=== PATIENT | male | born 1995 | race Caucasian/White ===

== ENCOUNTER 2017-10-02 19:49 | Emergency (ER) | payer OTHER ==
[2017-10-02] MEDS ORDERED: KETOROLAC 30 MG/1 ML SDV IVP ONE (20:48)
[2017-10-02] MEDS ORDERED: DEXAMETHASONE 10 MG/ML VIAL IVP ONE (20:49)
[2017-10-02] MEDS ORDERED: NS 1,000 ML IV ONE (20:49)
--- NOTE | 2017-10-02 20:51 | EDPHY ---
H & P Time Seen by Provider: 10/02/17 20:36 HPI/ROS: CHIEF COMPLAINT: Sore throat, dysphagia HISTORY OF PRESENT ILLNESS: 22-year-old male presents to the emergency department by private vehicle with sore throat dysphagia over last few days. Patient has a history of frequent tonsillitis. He was last treated in May of 2017. He states that his symptoms began yesterday and been gradually getting worse. He is now having difficulty swallowing water. No known fevers or chills. No other URI symptoms. Denies a cough. He denies chest pain or difficulty breathing. No vomiting. He had mono 3 years ago. No known ill contacts. He has been told that he has should have his tonsils removed. REVIEW OF SYSTEMS: Constitutional: No fever, no chills. Eyes: No double or blurry vision. ENT: As above Respiratory: No cough, no shortness of breath. Cardiac: No chest pain. Gastrointestinal: No abdominal pain, vomiting or diarrhea. Genitourinary: No dysuria. Musculoskeletal: No neck or back pain. Skin: No rashes. Neurological: No headache. Past Medical/Surgical History: Frequent tonsillitis Social History: [employer] student from [place] Smoking Status: Never smoked Physical Exam: General Appearance: Alert, no distress. Afebrile. Muffled voice. Eyes: Pupils equal and round. Extraocular motions are all intact. ENT: Mouth: Mucous membranes moist. Large 3+ tonsils. No exudate. Muffled voice. No trismus. Respiratory: No wheezing, rhonchi, or rales, lungs are clear to auscultation. Cardiovascular: Regular rate and rhythm. Gastrointestinal: Abdomen is soft and nontender, no masses, no rebound or guarding, bowel sounds normal. Neurological: Alert and oriented x 3, cranial nerves II through XII grossly intact Skin: Warm and dry, no rashes. Musculoskeletal: Nontender to palpate along the cervical, thoracic or lumbar spine. Neck is supple. Extremities: Full range of motion and no peripheral edema. Psychiatric: Patient is oriented X 3, there is no agitation. Constitutional: Initial Vital Signs Temperature (C) 36.7 C 10/02/17 19:57 Heart Rate 109 H 10/02/17 19:57 Respiratory Rate 18 10/02/17 19:57 Blood Pressure 126/89 H 10/02/17 19:57 O2 Sat (%) 96 10/02/17 19:57 O2 Delivery Mode Room Air Allergies/Adverse Reactions: No Known Allergies Allergy (Unverified 10/02/17 19:56) Home Medications: Medication Instructions Recorded Amoxicillin/Clavulanate Pot 875 mg PO BID #20 tab 10/02/17 [Augmentin 875 mg tab] Tylenol 10/02/17 Medical Decision Making ED Course/Re-evaluation: 22-year-old male presents to the emergency department with sore throat, evidence of tonsillitis and muffled voice. He was treated with 30 mg of IV Toradol, 10 mg of IV Decadron and IV normal saline. He was feeling much better. He will be treated with Augmentin for his tonsillitis. He was given ENT referral. He has been told in the past to pursue possible tonsillectomy. I did discuss this with him. Patient is comfortable being discharged home. He is tolerating p.o. Fluids. He was instructed to return if he developed difficulty swallowing, fever, or if he felt worse in any way. Patient verbalized understanding and agreed. No evidence of peritonsillar abscess on exam. Differential Diagnosis: Including but not limited to tonsillitis, peritonsillar abscess, viral pharyngitis, strep pharyngitis, mononucleosis - Data Points Medications Given: Discontinued Medications Amoxicillin/Clavulanate Potassium (Augmentin 875mg) 875 mg PO EDNOW ONE PRN Reason: Protocol Stop: 10/02/17 22:20 Last Admin: 10/02/17 22:34 Dose: 875 mg Dexamethasone (Decadron Injection) 10 mg IVP EDNOW ONE Stop: 10/02/17 20:50 Last Admin: 10/02/17 20:55 Dose: 10 mg Sodium Chloride (Ns) 1,000 mls @ 0 mls/hr IV ONCE ONE PRN Reason: Wide Open Stop: 10/02/17 20:50 Last Admin: 10/02/17 20:53 Dose: 1,000 mls Ketorolac Tromethamine (Toradol) 30 mg IVP EDNOW ONE Stop: 10/02/17 20:49 Last Admin: 10/02/17 20:54 Dose: 30 mg Departure - Departure Disposition: Home, Routine, Self-Care Clinical Impression: Tonsillitis Condition: Good Instructions: Tonsillitis (ED) Additional Instructions: Augmentin 875 mg twice daily for 10 days. Follow up with ENT as discussed. Return to the emergency department if you developed difficulty breathing, difficulty swallowing, or if you feel worse in any way. Referrals: Dilan Lane MD [Medical Doctor] - 2-3 days without fail (ENT on-call) Prescriptions: Amoxicillin/Clavulanate Pot [Augmentin 875 mg tab] 875 mg PO BID #20 tab
[2017-10-02 22:12] VITALS: BP 134/77
[2017-10-02] MEDS ORDERED: AMOXICILLIN/CLAVULANATE POT 875/125 MG TAB PO ONE (22:19)
== END 2017-10-02 22:35 | disposition home or self-care (01) ==
DX: J03.90 Acute tonsillitis, unspecified (principal)
CPT/HCPCS: 96374; J1100; J1885

== ENCOUNTER 2018-02-11 07:53 | Emergency (ER) | payer OTHER ==
--- NOTE | 2018-02-11 08:05 | EDPHY ---
H & P Time Seen by Provider: 02/11/18 08:04 HPI/ROS: Chief complaint. Intoxicated, found down HPI. 22-year-old male here by EMS with apparent intoxication. Patient is admits to drinking alcohol through the night. He was found on his couch at home by his roommates. They were concerned that he seemed passed out. They called EMS arrived and with sternal rub the patient is awake and talking. He admits to alcohol. There is some discussion that the patient may have been doing cocaine in addition to the alcohol. Patient does admit to the alcohol. He has no complaints and he tells me"I feel good right now". He has no injuries and is not sick. No chest discomfort or trouble breathing. No abdominal pain or vomiting or diarrhea. ROS Constitutional. no fever/chills, no weakness Eyes. no problems with vision ENT. no sore throat, no nasal drainage Cardiovascular. no chest pain Respiratory. no shortness of breath, no cough Abdominal. no abdominal pain, no nausea/vomiting, no diarrhea . no problems urinating MS. no calf pain/swelling, no neck/back pain, no joint pain Skin. no rash Lymph. no swollen glands Neuro. Decreased ability to stand and walk secondary to intoxication Past Medical/Surgical History: Tonsillitis Social History: Single, nonsmoker, recent alcohol Smoking Status: Never smoked Physical Exam: General Appearance: Alert well-developed male mild distress vital signs are stable. Obviously intoxicated Eyes: Pupils equal round reactive. Conjunctiva mildly injected. ENT, Mouth: Mucous membranes are moist. Respiratory: There are no retractions, lungs are clear to auscultation. Cardiovascular: Regular rate and rhythm. Gastrointestinal: Abdomen is soft and nontender, no masses, bowel sounds normal. Neurological: Awake and alert, sensory and motor exams grossly normal. Skin: Warm and dry, no rashes. Musculoskeletal: Neck is supple nontender. Extremities symmetrical, full range of motion. Psychiatric: Patient is oriented X 3, there is no agitation. Constitutional: Initial Vital Signs Temperature (C) 36.4 C 02/11/18 07:53 Heart Rate 104 H 02/11/18 07:53 Respiratory Rate 16 02/11/18 07:53 Blood Pressure 129/82 H 02/11/18 07:53 O2 Sat (%) 96 02/11/18 07:53 O2 Delivery Mode Room Air Allergies/Adverse Reactions: No Known Allergies Allergy (Unverified 02/11/18 08:04) Home Medications: Medication Instructions Recorded Tylenol 10/02/17 Ritalin 10mg (*) 02/11/18 Medical Decision Making ED Course/Re-evaluation: At 8:40 a.m. The patient pulled out his I V. He is up ambulatory in the emergency department wanting to be discharged. He has no complaints. He wishes to taken over home. We are trying to arrange for his friends to come pick him up. Differential Diagnosis: Apparent alcohol intoxication without evidence of injury. Stable vital signs. Neurologically intact Departure - Departure Disposition: Home, Routine, Self-Care Clinical Impression: Alcoholic intoxication Qualifiers: Complication of substance-induced condition: uncomplicated Qualified Code(s): F10.920 - Alcohol use, unspecified with intoxication, uncomplicated Condition: Good Instructions: Alcohol Intoxication (ED) Additional Instructions: No more alcohol or drugs today. Return for worsening symptoms. Follow-up with [facility] tomorrow for any continuing symptoms Referrals: NONE *PRIMARY CARE P,. [Primary Care Provider] - As per Instructions [facility],. [Clinic] - 1 day, if not improved
[2018-02-11 08:49] VITALS: BP 112/76
== END 2018-02-11 08:49 | disposition home or self-care (01) ==
LOC: EDUNIT#
DX: F10.920 Alcohol use, unspecified with intoxication, uncomplicated (principal)